=== PATIENT | female | born 2000 | race African-American/Black ===

== ENCOUNTER 2024-12-31 18:02 | Observation (INO) | payer MEDICAID, OTHER ==
[~2024-12-31] VITALS: Ht 160 cm; Wt 95.3 kg
[2024-12-31 19:28] LABS: Urine Protein, UAD Negative (Negative)
--- NOTE | 2024-12-31 19:29 | DVH ---
INDICATION: cramping TECHNIQUE: Multiple real-time grayscale transabdominal sonographic images along with color and duplex Doppler of the uterus and ovaries were obtained. COMPARISON: None FINDINGS: Cervical length measures 3.23 cm. RJ = 14.1 cm FHR= 148 bpm position cephalic Placenta is fundal. No placenta previa or abruption. Satisfactory movement. IMPRESSION: 1. Cervical length 3.23 cm and appears closed.
[2024-12-31 19:32] LABS: Hematocrit 31.0 % (36.0-46.0); Hemoglobin 10.2 g/dL (12.2-16.2); Mean Corpuscular Hemoglobin 26.7 pg (28.0-32.0); Mean Corpuscular Volume 81.0 fL (80.0-100.0); Nucleated Red Blood Cells % 0.0 %
[2024-12-31 19:43] LABS: Protein, Urine 7.4 mg/dL (1-14)
[2024-12-31 19:45] LABS: INR 1.03 (0.9-1.15); Partial Thromboplastin Time 32.5 SEC (24.5-34.5); Prothrombin Time 10.9 sec (9.3-11.8)
[2024-12-31 19:48] LABS: Albumin 3.9 g/dL (3.2-4.8); Alkaline Phosphatase 75 U/L (46-116); Anion Gap 12 (5-15); Carbon Dioxide 21 mmol/L (20-31); Chloride 106 mmol/L (98-107); Glucose 78 mg/dL (74-106); Potassium 3.9 mmol/L (3.5-5.1); Sodium 139 mmol/L (136-145); Total Protein 6.9 g/dL (5.7-8.2)
[2024-12-31 19:49] LABS: Bilirubin, Total 0.4 mg/dL (0.2-1.0)
[2024-12-31 19:57] LABS: BUN/Creatinine Ratio 10.6 (10.0-20.0); Blood Urea Nitrogen < 5 mg/dL (9-23)
[2024-12-31 19:58] LABS: Alanine Aminotransferase < 9 U/L (7-40); Calcium 8.7 mg/dL (8.7-10.4); Uric Acid 2.9 mg/dL (3.1-7.8)
[2024-12-31] MEDS ORDERED: NITR-87 PO (20:00)
[2024-12-31] MEDS: ACETAMINOPHEN 325 MG TAB PO STA (20:24)
--- NOTE | 2024-12-31 20:57 | DVHDS2 ---
Physician Discharge Progress N Final Diagnosis: UTI Left-sided migraines iron deficiency anemia Operations or Procedures: Operations or Procedures S: 24Y/O 30.5 weeks GA patient presents with complaints of pelvic pain and SCHULTZ. Left-sided SCHULTZ has been ongoing during the entirety of the , reports if feels worse today /10 and was not made better with 650mg Tylenol at 1600 at home. Pelvic pain 2/10 accompanied by urinary frequency. Patient denies burning when urinating. +FM, Denies LOF/UCs/ RUQ pain/ vision changes/ VB Patient reports adequate PNC with Dr. Corbett, uncomplicated PMH: Denies PSH: Denies FMH: Denies O: VSS - See CPN OB limited sono with cervical length EFM: Cat 1 No UC's, Abdomen palpates soft Tylenol 975mg PO ordered Laboratory Tests Test 12/31/24 18:40 12/31/24 19:14 Range/Units Urine Color Colorless Yellow Urine Clarity Clear Clear Urine pH 6.0 5.0-9.0 Urine Specific [place] 1.007 1.001-1.035 Urine Protein Negative Negative Urine Ketones Negative Negative Urine Blood Negative Negative /uL Urine Nitrite Negative Negative Urine Bilirubin Negative Negative Urine Urobilinogen Normal Negative mg/dL Urine Leukocyte Esterase Negative Negative /uL Urine RBC 1 0 - 4 /hpf Urine Microscopic WBC 1 0-5 /HPF Urine Squamous Epithelial Cells Few <5 /hpf Urine Bacteria Few H None Seen /hpf Urine Creatinine 34.80 30.0-125.0 mg/dL Urine Protein/Creatinine Ratio 0.21 Urine Glucose Normal Normal mg/dL Urine Total Protein 7.4 1-14 mg/dL White Blood Count 7.9 4.4-10.8 10^3/uL Red Blood Count 3.83 L 4.0-5.20 10^6/uL Hemoglobin 10.2 L 12.2-16.2 g/dL Hematocrit 31.0 L 36.0-46.0 % Mean Corpuscular Volume 81.0 80.0-100.0 fL Mean Corpuscular Hemoglobin 26.7 L 28.0-32.0 pg Mean Corpuscular Hemoglobin Concent 33.0 32.0-36.0 g/dL Red Cell Distribution Width 14.1 11.8-14.3 % Platelet Count 303 140-450 10^3/uL Mean Platelet Volume 6.6 L 6.9-10.8 fL Neutrophils (%) (Auto) 62.6 37.0-80.0 % Lymphocytes (%) (Auto) 26.5 10.0-50.0 % Monocytes (%) (Auto) 8.6 0.0-12.0 % Eosinophils (%) (Auto) 1.8 0.0-7.0 % Basophils (%) (Auto) 0.5 0.0-2.0 % Neutrophils # (Auto) 5.0 1.6-8.6 10 ^3/uL Lymphocytes # (Auto) 2.1 0.4-5.4 10 ^3/uL Monocytes # (Auto) 0.7 0-1.3 10 ^3/uL Eosinophils # (Auto) 0.1 0-0.8 10 ^3/uL Basophils # (Auto) 0 0-0.2 10 ^3/uL Nucleated Red Blood Cells 0.0 % Prothrombin Time 10.9 9.3-11.8 sec Prothrombin Time INR 1.03 0.9-1.15 Activated Partial Thromboplast Time 32.5 24.5-34.5 SEC Sodium Level 139 136-145 mmol/L Potassium Level 3.9 3.5-5.1 mmol/L Chloride Level 106 98-107 mmol/L Carbon Dioxide Level 21 20-31 mmol/L Anion Gap 12 5-15 Blood Urea Nitrogen < 5 L 9-23 mg/dL Creatinine 0.47 L 0.550-1.02 mg/dL Glomerular Filtration Rate Calc 138 >90 mL/min BUN/Creatinine Ratio 10.6 10.0-20.0 Serum Glucose 78 74-106 mg/dL Uric Acid 2.9 L 3.1-7.8 mg/dL Calcium Level 8.7 8.7-10.4 mg/dL Total Bilirubin 0.4 0.2-1.0 mg/dL Aspartate Amino Transferase (AST) 9 L 13-40 U/L Alanine Aminotransferase (ALT) < 9 7-40 U/L Alkaline Phosphatase 75 46-116 U/L Total Protein 6.9 5.7-8.2 g/dL Albumin 3.9 3.2-4.8 g/dL A: 24yo IUP@30.5wks UTI Iron deficiency anemia Left sided migraines P: D/C home Rx sent for macrobid Recommended OTC three arrows iron 1 pill daily, womens probiotic daily, vitamin B2 400mg daily, and magnesium oxide 400mg HS. Recommended ice pack head cover and feet in hot water at the same time for migraines f/u with primary OB as scheduled on 01/07/25 FKC/PTL/PreE precautions reviewed. Dr. Jimenez consulted, agrees with POC. Other Interventions Other Interventions [place] [address] Ph: [phone] DIAGNOSTIC IMAGING Diagnostic Imaging Report : [id number] Signed PATIENT: ROBINA PROCTOR ACCT: [id number] UNIT: [id number] : 2000 LOC: [facility] ROOM / [facility]: [facility] / A AGE / SEX: 24 / F ADM STATUS: ADM IN SERVICE 32 ORDERING PHYSICIAN: NERY KELLY CNM PROCEDURE(s): OBLTD - OBSTERICAL LIMITED REASON: cramping ORDER NUMBER(s): [id number], ACCESSION NUMBER(s): [id number] INDICATION: cramping TECHNIQUE: Multiple real-time grayscale transabdominal sonographic images along with color and duplex Doppler of the uterus and ovaries were obtained. COMPARISON: None FINDINGS: Cervical length measures 3.23 cm. RJ = 14.1 cm FHR= 148 bpm position cephalic Placenta is fundal. No placenta previa or abruption. Satisfactory movement. IMPRESSION: 1. Cervical length 3.23 cm and appears closed. ATED BY: OMEGA GALLARDO Jr., DO DICTATED DATE/TIME: 12/31/241925 SIGNED BY: OMEGA GALLARDO Jr., SIGNED DATE/TIME: 12/31/241925 CC: Condition on Discharge: Stable Disposition: Home Discharge Instructions: Diet: Regular Activity: No Restrictions, As Tolerated Follow Up/Referral: f/u with primary OB as scheduled Medications: see med list Follow Up Care: Specialist: F/U with primary OB on 01/07/25 as scheduled Discharge Statement: "Patient was advised to return to the ER or call 911 if any headaches, dizziness, shortness of breath, chest pain, abdominal pain, bleeding, fevers, or worsening of medical condition. Patient was counseled about treatment plan, medications, possible side effects, patientverbalized understanding. All questions were answered to the best of my ability. This discharge took greater then 30 minutes in planning, reviewing documentation, counseling the patient, and discussing with other team members." Visit Coding OBGYN Date of Service: Dec 31, 2024 Billing Provider: NERY KELLY CNM OWNER/OPERATOR Common Visit Codes: 42326-ROKINTW OBS CARE (HIGH) OWNER/OPERATOR Procedure Codes: 08017-72- NON-STRESS TEST NERY KELLY CNM Dec 31, 2024 20:57
== END 2024-12-31 21:05 | disposition home or self-care (01) ==
LOC: LDRP 18:02
PROVIDERS: ADMIT Obstetrics & Gynecology; ATTEND Obstetrics & Gynecology
DX: O23.43 Unspecified infection of urinary tract in pregnancy, third trimester (principal); N39.0 Urinary tract infection, site not specified; O99.013 Anemia complicating pregnancy, third trimester; D50.9 Iron deficiency anemia, unspecified; O99.353 Diseases of the nervous system complicating pregnancy, third trimester; G43.909 Migraine, unspecified, not intractable, without status migrainosus; R79.1 Abnormal coagulation profile; Z3A.30 30 weeks gestation of pregnancy; Z98.890 Other specified postprocedural states
CPT/HCPCS: 36415; 59025; 76815; 80053; 81001; 81002; 82570; 84156; 84550; 85025; 85610; 85730; 87086; 94762; G0378